=== PATIENT | female | born 1930 | race Caucasian/White ===

== ENCOUNTER 2020-09-19 21:19 | Emergency (ER) | payer MEDICARE ==
[~2020-09-19] VITALS: Ht 160 cm; Wt 45.4 kg
[2020-09-19 21:19] VITALS: BP 114/57
--- NOTE | 2020-09-19 21:19 | NUR ---
PT [facility]. TAKEN TO BED 3
--- NOTE | 2020-09-19 21:19 | NUR ---
BIBA from [facility] s/p fall unwitnessed. Left side of head bleeding controlled and lacerations on the right arm and hand. bandaged right arm and left side of the head given ice pack. AAOx1-confused. PMH: HTN, CKD, Pacemaker, Afib Allergies: Actonel, codeine, fosamax, ultram
--- NOTE | 2020-09-19 21:22 | NUR ---
Eliecer sanders in [facility] - 09/19/20 at [address]I patient [address]
--- NOTE | 2020-09-19 21:25 | NUR ---
patient to CT via [facility]
--- NOTE | 2020-09-19 22:01 | NUR ---
EKG PERFORMED AT BEDSIDE. EKG READS ATRIAL SENSED VENTRICULAR PACED RHYTHM @ 94
--- NOTE | 2020-09-19 22:05 | NUR ---
Lab at bedside for blood draws
--- NOTE | 2020-09-19 22:13 | NUR ---
Patient reports the back of the head does not feel good and feels painful. Patient unable to vocalize level of pain. MD notified.
[2020-09-19 22:20] LABS: BASOPHILS % (AUTO) 0.2 % (0.0-2.0); EOSINOPHILS # (AUTO) 0.1 K/uL (0-0.4); EOSINOPHILS % (AUTO) 0.9 % (0.0-4.0); HEMATOCRIT 38.9 % (36-48); HEMOGLOBIN 13.2 g/dL (12.0-16.0); LYMPHOCYTES % (AUTO) 12.6 % (20.5-51.1); MEAN CORPUSCULAR HEMOGLOBIN 33 pg (27-31); MEAN CORPUSCULAR HGB CONC 34 g/dL (33-37); MEAN CORPUSCULAR VOLUME 96.4 fL (80-94); MONOCYTES # (AUTO) 0.8 K/uL (0.8-1.0); MONOCYTES % (AUTO) 10.1 % (1.7-9.3); NEUTROPHILS # (AUTO) 5.9 K/uL (1.8-7.7); NEUTROPHILS % (AUTO) 76.2 % (42.2-75.2); PLATELET COUNT (AUTO) 167 K/uL (140-450); RED BLOOD CELL COUNT(AUTO) 4.04 MIL/uL (4.20-5.40); RED CELL DISTRIBUTION WIDTH 14.9 % (11.6-13.7); WHITE BLOOD COUNT (AUTO) 7.7 K/uL (4.8-10.8)
[2020-09-19] MEDS ORDERED: ACETAMINOPHEN 325 MG TAB PO ONE (22:20)
[2020-09-19 22:37] LABS: ANION GAP 11.4 (8-16); ASPARTATE AMINOTRANSFERASE 22 U/L (15-37); CARBON DIOXIDE 27.3 mmol/L (21-32); CHLORIDE 106 mmol/L (98-107); CREATININE 0.7 mg/dL (0.6-1.3); GLUCOSE 115 mg/dL (74-106); POTASSIUM 3.7 mmol/L (3.5-5.1); SODIUM SERUM 141 mmol/L (136-145); TOTAL BILIRUBIN 0.6 mg/dL (0.0-1.0); UREA NITROGEN, BLOOD 21 mg/dL (7-18)
--- NOTE | 2020-09-19 22:37 | NUR ---
Spoke with patient's He Cramer about update on patient. If needed to be called: #[phone]
--- NOTE | 2020-09-19 22:40 | NUR ---
Patient able to sign consent form to transfer to different facility. All questions answered by ERMD.
[2020-09-19 22:52] LABS: PROTHROMBIN TIME 10.4 secs (10.8-13.4)
--- NOTE | 2020-09-19 23:37 | NUR ---
Kim collected. sent to lab received by [facility] lab
--- NOTE | 2020-09-20 00:30 | NUR ---
Called after hours pharmacy regarding medication of tdap vaccination that was supposed to be given to the patient. Justyn from after hours pharmacy picked up and said that medication can be an override from the pixus and given to patient. Justyn also said As for charting through the eMAR there is a possibility to override. tdap vaccination will be charted on the nursing notes.
--- NOTE | 2020-09-20 01:28 | NUR ---
Report Called to RANDALL Mtz from [facility] #[phone]
--- NOTE | 2020-09-20 02:00 | NUR ---
Tdap given on the Right Gluteus Medius at 0200 Vaccine Stunner: Grant Vaccine Lot number: [id number] Expiration
--- NOTE | 2020-09-20 02:00 | NUR ---
Eliecer sanders in ED - 09/20/20 at 022 by CLARI Tdap given on the Right Gluteus Piyush at 0200 Vaccine Investor Relations Manager: Adacel Vaccine Lot number: [id number] Expiration
--- NOTE | 2020-09-20 02:16 | NUR ---
Lore RN from [facility] called to ask about patient and for a follow up on patient
--- NOTE | 2020-09-20 02:44 | NUR ---
Patient to be transferred to [facility]. Is being transferred due to higher level of care. Receiving facility has accepting physician and available space. ER physician has signed transfer form. Patient or responsible republican has agreed to transfer and signed form. Patient belongings inventoried and will be sent with patient. Copy of nursing notes, lab reports, EKG, Physicians Orders and X-rays to be sent with patient. Report called to RANDALL Mtz at receiving facility. [facility] ambulance service has been called for transfer. ETA arrival 0215.
[2020-09-20 02:50] VITALS: BP 104/48
--- NOTE | 2020-09-20 02:50 | NUR ---
Shoaib informed about transfer of to another facility.
--- NOTE | 2020-09-20 02:51 | NUR ---
PT TAKEN [facility] [place] [facility] [id number]
== END 2020-09-20 02:51 | disposition short-term general hospital (02) ==
LOC: MED 21:19
DX: S51.811A Laceration without foreign body of right forearm, initial encounter (principal); S01.01XA Laceration without foreign body of scalp, initial encounter; S06.6X9A Traumatic subarachnoid hemorrhage with loss of consciousness of unspecified duration, initial encounter; S06.5X9A Traumatic subdural hemorrhage with loss of consciousness of unspecified duration, initial encounter; Z88.5 Allergy status to narcotic agent; Z88.8 Allergy status to other drugs, medicaments and biological substances; Z20.822 Contact with and (suspected) exposure to COVID-19; W06.XXXA Fall from bed, initial encounter; Y93.89 Activity, other specified; Y92.89 Other specified places as the place of occurrence of the external cause; Y99.8 Other external cause status
CPT/HCPCS: 36415; 70450; 71045; 72125; 73090; 80053; 84484; 85025; 85610; 85730; 90471; 90715; 93005; 99291

== ENCOUNTER 2020-09-29 05:40 | Emergency (ER) | payer MEDICARE ==
[~2020-09-29] VITALS: Ht 157.5 cm; Wt 44.9 kg
[2020-09-29 05:45] VITALS: BP 113/68
[2020-09-29] MEDS ORDERED: ACETAMINOPHEN EXTRA STRENGTH 500 MG TAB PO ONE (06:25)
[2020-09-29 07:18] LABS: APPEARANCE,URINE HAZY (CLEAR); BILIRUBIN,URINE NEGATIVE (NEGATIVE); BLOOD, URINE 1+ (NEGATIVE); COLOR,URINE YELLOW (YELLOW); LEUKOCYTE ESTERASE ,URINE NEGATIVE (NEGATIVE); NITRITE, URINE NEGATIVE (NEGATIVE); PH,URINE 7.5 (5.0-9.0); UGLUCOSE NEGATIVE (NEGATIVE)
[2020-09-29 07:20] LABS: BASOPHILS % (AUTO) 0.2 % (0.0-2.0); EOSINOPHILS # (AUTO) 0.1 K/uL (0-0.4); EOSINOPHILS % (AUTO) 1.3 % (0.0-4.0); HEMATOCRIT 36.9 % (36-48); HEMOGLOBIN 12.4 g/dL (12.0-16.0); LYMPHOCYTES # (AUTO) 0.7 K/uL (2.5-16.5); LYMPHOCYTES % (AUTO) 10.1 % (20.5-51.1); MEAN CORPUSCULAR HEMOGLOBIN 33 pg (27-31); MEAN CORPUSCULAR HGB CONC 34 g/dL (33-37); MEAN CORPUSCULAR VOLUME 96.5 fL (80-94); MONOCYTES % (AUTO) 12.9 % (1.7-9.3); NEUTROPHILS # (AUTO) 5.6 K/uL (1.8-7.7); NEUTROPHILS % (AUTO) 75.5 % (42.2-75.2); PLATELET COUNT (AUTO) 218 K/uL (140-450); RED BLOOD CELL COUNT(AUTO) 3.82 MIL/uL (4.20-5.40); RED CELL DISTRIBUTION WIDTH 14.1 % (11.6-13.7); WHITE BLOOD COUNT (AUTO) 7.4 K/uL (4.8-10.8)
[2020-09-29 07:25] LABS: RBC,URINE 0-5 /HPF (0-5); WBC,URINE 0-5 /HPF (0-5)
[2020-09-29 07:26] LABS: CARBON DIOXIDE 25.7 mmol/L (21-32); CHLORIDE 104 mmol/L (98-107); CREATININE 0.5 mg/dL (0.6-1.3); GLUCOSE 92 mg/dL (74-106); POTASSIUM 3.7 mmol/L (3.5-5.1); SODIUM SERUM 138 mmol/L (136-145); UREA NITROGEN, BLOOD 15 mg/dL (7-18)
[2020-09-29 07:32] LABS: ALBUMIN 2.9 g/dL (3.4-5.0); ASPARTATE AMINOTRANSFERASE 23 U/L (15-37); TOTAL BILIRUBIN 0.9 mg/dL (0.0-1.0)
[2020-09-29] MEDS ORDERED: MORPHINE SULFATE 4 MG/ML SYR IVP ONE (08:50)
[2020-09-29 10:59] LABS: PROTHROMBIN TIME 10.5 secs (10.8-13.4)
[2020-09-29 11:40] VITALS: BP 119/69
== END 2020-09-29 11:41 | disposition short-term general hospital (02) ==
LOC: MED 05:40
DX: S72.091A Other fracture of head and neck of right femur, initial encounter for closed fracture (principal); Z20.822 Contact with and (suspected) exposure to COVID-19; S06.5X9A Traumatic subdural hemorrhage with loss of consciousness of unspecified duration, initial encounter; I12.9 Hypertensive chronic kidney disease with stage 1 through stage 4 chronic kidney disease, or unspecified chronic kidney disease; N18.9 Chronic kidney disease, unspecified; E87.6 Hypokalemia; Z95.0 Presence of cardiac pacemaker; Z88.5 Allergy status to narcotic agent; Z88.8 Allergy status to other drugs, medicaments and biological substances; W19.XXXA Unspecified fall, initial encounter; Y93.89 Activity, other specified; Y92.89 Other specified places as the place of occurrence of the external cause; Y99.8 Other external cause status
CPT/HCPCS: 36415; 70450; 71045; 72125; 73501; 80053; 81001; 83605; 84484; 85025; 85610; 85730; 86886; 86900; 86901; 87040; 87426; 93005; 96374; 99291; J2270